=== PATIENT | male | born 1945 | race Caucasian/White ===

== ENCOUNTER → 2018-06-26 10:33 | Emergency (ER) | payer MEDICARE ==
[~2018-06-26 10:33] MED LIST: Potassium Chlor TAB* 20 MEQ TAB.ER PO ONE
--- OUTSIDE RECORDS SUMMARY | 2018-06-26 10:52 | XMS REPORT | Continuity of Care Document ---
:1945 External Reference #:[id number] Author Name Blaze Claudio M.D. Address [address] [place] [address] Care Team Providers Name Role Phone Andrey Ashley M.D. Primary Care Physician Unavailable Payers Type Date Identification Numbers Payment Provider Subscriber Policy Number: [id number] Medicare - [facility] Shadi Luowell PayID: [id number] [address] [place] [address] Policy Number: [id number] Formerly [facility] Shadi Luowell PayID: [id number] [address] [place] [address] Advance Directives Description No Information Available Problems Date Description Provider Status Onset: Essential hypertension Active Onset: Pure hypercholesterolemia Active Onset: Seasonal allergic rhinitis Active Onset: Inflammatory bowel disease Active Onset: 11/23/2014 Primary open angle glaucoma Blaze Claudio M.D. Active Onset: 11/23/2014 Nuclear senile cataract Blaze Claudio M.D. Active Onset: 11/23/2014 Mild / Early Stage Glaucoma Blaze Claudio M.D. Active Onset: 05/25/2015 Combined form of senile cataract Blaze Claudio M.D. Active Onset: 05/25/2015 Primary open-angle glaucoma, mild Blaze Claudio M.D. Active stage Onset: 05/29/2016 Bilateral primary open angle glaucoma Blaze Claudio M.D. Active Onset: 07/01/2016 Primary open angle glaucoma of left Blaze Claudio M.D. Active eye Onset: 07/01/2016 Primary open angle glaucoma of right Blaze Claudio M.D. Active eye Onset: 08/01/2016 Bilateral primary open angle glaucoma Blaze Claudio M.D. Active Onset: 06/03/2018 Other benign neoplasm of skin of left Blaze Claudio M.D. Active upper eyelid, including canthus Family History Date Family Member(s) Problem(s) Comments Father No Current Problems Mother Cataract Mother Hypertension Mother Diabetes Social History Type Date Description Comments Sex Unknown Marital Status Legal Status: Occupation [employer] RETIRED ETOH Use Occasionally consumes alcohol Recreational Drug Use Never Used Drugs Tobacco Use Start: Unknown End: Patient is a former smoker Unknown Smoking Status Reviewed: 06/03/18 Patient is a former smoker Allergies, Adverse Reactions, Alerts Description No Known Drug Allergies Medications Medication Date Status Form Strength Qnty SIG Indications Ordering Provider Erythromycin 06/03 Active Ointment 5mg/GM 1Tube apply to Blaze Lopez surgical [place], site M.D. three times a day Timolol Maleate 06/06 Active GFS 0.5% 5unit Instill 1 Blaze Lopez Ophthalmic Gel s Drop Into [place]o, Forming Each Eye M.D. Once Daily Atenolol 0000 Active Tablets 25mg Gabi, /0000 Andrey Chung Lisinopril 0000 Active Tablets 30mg Gabi, /0000 Andrey Chung Simvastatin 00 Active Tablets 40mg Gabi, /0000 Andrey Chung Sulfasalazine 00 Active Tablets 500mg Zac, /0000 [place] Chung Aspirin Adult Low [address] 81mg Unknown Dose /0000 Multi Vitamin 00 Active Tablets Unknown Daily /0000 Artificial Tears Active Solution 0.1-0.3% as needed Unknown /0000 Pred Forte 05/29 Hx Suspension 1% 5ml One drop H40.1131 Blaze Lopez three [place]leo, - times a M.D. 07/04 day for three days OD, then three times a day for three days OS. Only after procedure . Timolol Maleate 11/22 Hx Solution 0.5% 1 drop Blaze Lopez s both eyes [place], - every day M.D. 06/06 Hydrochlorothiazid Hx Tablets 25mg Gabi, e /0000 Andrey Chung - 11/25 Immunizations Description No Information Available Vital Signs Date Vital Result Comment 07/01/2016 1:06pm BP Systolic 155 mmHg BP Diastolic 83 mmHg Heart Rate 66 /min Respiratory Rate 15 /min 06/10/2016 1:19pm BP Systolic 156 mmHg BP Diastolic 68 mmHg Heart Rate 72 /min Respiratory Rate 14 /min Results Description No Information Available Procedures Date Code Description Status 12/01/2017 82095 Scanning Computerized Ophthalmic Diagnostic Imag Posterior Completed Seg On 12/01/2017 77907 Visual Field Exam Extended Completed 12/01/2017 80772 Est Patient Comprehensive Exam Completed 06/02/2017 69279 Est Patient Intermediate Exam Completed 12/01/2016 35555 Scanning Computerized Ophthalmic Diagnostic Imag Posterior Completed Seg On 12/01/2016 27298 Visual Field Exam Extended Completed 12/01/2016 51981 Est Patient Comprehensive Exam Completed 07/01/2016 93408 Trabeculoplasty By Laser Surgery Completed 06/10/2016 65049 Trabeculoplasty By Laser Surgery Completed 05/29/2016 84510 Est Patient Intermediate Exam Completed 11/27/2015 95581 Est Patient Comprehensive Exam Completed 11/27/2015 48304 Visual Field Exam Extended Completed 11/27/2015 60909 Scanning Computerized Ophthalmic Diagnostic Imag Posterior Completed Seg On 05/25/2015 34867 Est Patient Intermediate Exam Completed 11/23/2014 75813 Scanning Computerized Ophthalmic Diagnostic Imag Posterior Completed Seg On 11/23/2014 30552 Visual Field Exam Extended Completed 11/23/2014 39927 Est Patient Comprehensive Exam Completed 05/23/2014 82619 Gonioscopy Completed 05/23/2014 17564 Est Patient Intermediate Exam Completed 11/22/2013 03836 Fundus Photography With Interpretation And Report Completed 11/22/2013 50176 Visual Field Exam Extended Completed 11/22/2013 67995 Est Patient Comprehensive Exam Completed 05/24/2013 29187 Scanning Computerized Ophthalmic Diagnostic Imag Posterior Completed Seg On 05/24/2013 59587 Est Patient Intermediate Exam Completed 11/16/2012 51058 Est Patient Comprehensive Exam Completed 11/16/2012 95095 Visual Field Exam Extended Completed 05/17/2012 63205 Scanning Computerized Ophthalmic Diagnostic Imag Posterior Completed Seg On 05/17/2012 95959 Est Patient Intermediate Exam Completed 12/04/2011 63343 Trabeculoplasty By Laser Surgery Completed 11/27/2011 88538 Trabeculoplasty By Laser Surgery Completed 10/23/2011 61024 Visual Field Exam Extended Completed 10/23/2011 05569 Est Patient Intermediate Exam Completed 04/24/2011 11539 Scanning Computerized Ophthalmic Diagnostic Imag Posterior Completed Seg On 04/24/2011 31216 Est Patient Intermediate Exam Completed 01/21/2011 51412 Fundus Photography With Interpretation And Report Completed 12/12/2010 26596 Est Patient Intermediate Exam Completed 12/12/2010 59050 Visual Field Exam Extended Completed 06/13/2010 18274 Scanning Laser W/Interp And Report Completed 06/13/2010 71879 Est Patient Comprehensive Exam Completed 11/05/2009 33770 Visual Field Exam Extended Completed 11/05/2009 22854 Est Patient Intermediate Exam Completed 06/04/2009 73166 Scanning Laser W/Interp And Report Completed 06/04/2009 72183 Est Patient Intermediate Exam Completed 01/31/2009 98852 Visual Field Exam Extended Completed 12/28/2008 70189 Fundus Photography With Interpretation And Report Completed 12/28/2008 86871 Determination Of Refractive State Completed 12/28/2008 92365 New Patient Comprehensive Exam Completed 12/28/2008 75392 Pachymetry Completed Encounters Type Date Location Provider Dx Diagnosis Office Visit 08/01/2016 Blaze Mir, H40.1131 Primary 9:30a loi NOVOA M.D. open-angle glaucoma, bilateral, mild stage Office Visit 01/15/2012 Blaze Mir, 365.11 Primary Open 10:30a loi NOVOA M.D. Angle Glaucoma 365.72 Moderate Glaucoma Office Visit 01/21/2011 1:15p Blaze Lopez 365.11 Primary Open Angle MD González, loi Claudio M.D. Glaucoma Office Visit 01/31/2009 9:45a Blaze Lopez 365.04 Ocular Hypertension MD González, loi Claudio M.D. Plan of Treatment 06/03/2018 - Blaze Claudio M.D.H40.1131 Primary open-angle glaucoma, bilateral, mild stageComments:Smoking can increase the risk of developing or worsening any eye related disease, as well as affect your overall health. If you are a smoker, we strongly recommend that you quit.If you are not a smoker, we strongly recommend that you do not start. Your glaucoma is stable at this time.Your eye pressure is within an acceptable range, and your testing does not show any further deterioration at this time. Please continue your treatment.Follow up:6 Month Follow Up DFE/IOP OCT ON Visual Field 30-2 You can expect to have your eyes dilated at yournext visit. If Dr. Claudio orders any additional testing, it may require extra time. We recommend thatyou bring sunglasses, as dilation drops often make you light sensitive until they wear off. We always recommend you bring someone to drive you home if you are uncomfortable driving with your eyes dilated. If you have any questions before your next visit, feel free to call our office at .B75.13 Age- related nuclear cataract, bilateralComments:You have been diagnosed with cataracts. If you are happy with your vision as it is now, then we willsee you at your next scheduled appointment. If you feel like your vision is getting worse before your scheduled appointment, please call Rose or Gwen at .X23.121 Other benign neoplasm of skin of left upper eyelid, including canthus
--- NOTE | 2018-06-26 13:01 | ED ---
GI/ HPI - HPI Summary HPI Summary: Patient is a 72 y/o M presenting to ED with complaints of intermittent rectal bleeding over the past few weeks with an increased amount of bleeding this morning. Provider in room at 1245, patient's accompanying. He claims Hx of hemorrhoids. Patient notes blood is darker red. He characterizes bleeding as spotting and reports that bleeding has been intermittent in the past. However, today it has been worse and nonstop. He also reports that he has been experiencing some clear liquid oozing that is occasionally pink from his rectum as well. He states that he has seen his PCP and Dr. Frank for these Sx and that they appeared unconcerned. He states that he had colonoscopy done 07/2017 and that it was negative. However, patient notes that he has a history of polyps w/ removal, and colitis. Patient notes that he typically has rectal bleeding after a bowel movement and sometimes with just certain activity (while doing things around the house). He denies abdominal pain, N/V/D. PMHx of HTN, HLD, benign enlarged prostate. PSHx for right/left hernias. FMHx of cardiac disease in mother. notes that patient's mother had passed due to colon cancer. No allergies to medicine reported. He notes rare alc usage, no substance usage, and that he is retired. On triage, pain is denied, hard stool is noted to aggravate Sx, nothing is reported to alleviate Sx. Home medications and allergies are reviewed. Patient reports that he is on Lisinopril 30 mg, chlorthalidone 650 mg, atenolol 25 mg, simvastatin 40 mg, sulfasalazine 500 mg x4 daily, asa 81 mg, timolol .5% GFS gel, ferrous sulfate 325 mg, tamsulosin .4 mg. Allergies Allergy/AdvReac Type Severity Reaction Status Date / Time No Known Allergies Allergy Verified 06/26/18 10:38 - History of Current Complaint Chief Complaint: EDGIBleed Time Seen by Provider: 06/26/18 12:45 Stated Complaint: RECTAL BLEEDING Hx Obtained From: Patient, Family/Director Institution Onset/Duration: Started Weeks Ago - a few weeks, Worse Since - this morning Timing: Intermittent, Lasting Weeks - a few weeks Current Severity: None - pain denied Pain Intensity: 0 Associated Signs and Symptoms: Positive: Other: - POSITIVE - RECTAL BLEEDING. Negative: Nausea, Vomiting, Diarrhea, Abdominal Pain Aggravating Factor(s): Bowel Movement - HARD STOOLS Alleviating Factor(s): Nothing - Allergy/Home Medications Allergies/Adverse Reactions: Allergies Allergy/AdvReac Type Severity Reaction Status Date / Time No Known Allergies Allergy Verified 06/26/18 10:38 Home Medications: Home Medications Ascorbic Acid [Vitamin C] 1,000 mg PO DAILY 06/26/18 [History Confirmed 06/26/18 ] Ferrous Sulfate 325 mg PO DAILY 06/26/18 [History Confirmed 06/26/18] Tamsulosin HCl 0.4 mg PO DAILY 06/26/18 [History Confirmed 06/26/18] PMH/Surg Hx/FS Hx/Imm Hx Cardiovascular History: Reports: Hx Hypercholesterolemia, Hx Hypertension GI History: Reports: Other GI Disorders - colon polyps, colitis History: Reports: Other Problems/Disorders - benign enlarged prostate - Surgical History Surgery Procedure, Year, and Place: left and right hernia surgery Infectious Disease History: No Infectious Disease History: Denies: Traveled Outside the [place] in Last 30 Days - Family History Known Family History: Positive: Cardiac Disease, Other - mother, colon CA - Social History Occupation: Retired Alcohol Use: Rare Substance Use Type: Reports: None Smoking Status (MU): Never Smoked Tobacco Review of Systems Negative: Abdominal Pain, Vomiting, Diarrhea, Nausea Genitourinary: Other - POSITIVE - RECTAL BLEEDING, CLEAR FLUID OOZING FROM RECTUM THAT IS OCCASIONALLY PINK All Other Systems Reviewed And Are Negative: Yes Physical Exam - Summary Physical Exam Summary: Appearance: Well-appearing, no pain distress, well-nourished Skin: Warm, color reflects adequate perfusion, dry Head: Normal Head/Face inspection, atraumatic Eyes: Conjunctiva clear ENT: Normal inspection Neck: Supple, no nodes, no JVD Respiratory: Lungs clear, normal breath sounds, no respiratory distress Cardio: RRR, No murmur, pulses normal, brisk capillary refill Abdomen: Soft, nontender Bowel sounds: Present Rectal Exam: 1 external hemorrhoid that is not thrombosed. Dark red blood only, no stool, no masses in rectum. Nurse Shannan chaperoned. Musculoskeletal: Strength Intact/ROM intact, no calf tenderness, no edema. Psychological: Normal Neuro: Alert, muscle tone normal, no focal deficit Triage Information Reviewed: Yes Vital Signs On Initial Exam: Initial Vitals Temp Pulse Resp BP Pulse Ox 97.0 F 64 16 165/86 100 06/26/18 10:35 06/26/18 10:35 06/26/18 10:35 06/26/18 10:35 06/26/18 10:35 Vital Signs Reviewed: Yes Diagnostics - Vital Signs Vital Signs Temp Pulse Resp BP Pulse Ox 06/26/18 12:27 98.1 F 63 18 154/82 99 06/26/18 10:35 97.0 F 64 16 165/86 100 - Laboratory Result Diagrams: 06/26/18 13:03 06/26/18 13:03 Lab Statement: Any lab studies that have been ordered have been reviewed, and results considered in the medical decision making process. Re-Evaluation - Re-Evaluation First Eval Re-Evaluation Time: 14:28 Comment: 1428 rectal exam done. No chest pain, dizziness, SOB reported. Stool occult collected. He notes that he has an appointment with Dr. Frank in two days. Second Eval Re-Evaluation Time: 14:39 Comment: Patient is noted not to be orthostatic by nurse Shannan. Third Eval Re-Evaluation Time: 14:58 Comment: Results of labs and tests were discussed with patient. Discussed discharge with patient, he is agreeable with discharge to home and keeping appointment with Dr. Frank in two days. GIGU Course/Dx - Course Course Of Treatment: Patient is a 72 y/o M presenting to ED with complaints of intermittent rectal bleeding over the past few weeks with an increased amount of bleeding this morning. He claims Hx of hemorrhoids. Patient notes blood is darker red. He characterizes bleeding as spotting and reports that bleeding has been intermittent in the past. However, today it has been worse and nonstop. He also reports that he has been experiencing some clear liquid oozing that is occasionally pink from his rectum as well. He states that he has seen his PCP and Dr. Frank for these Sx and that they appeared unconcerned. He states that he had colonoscopy done 07/2017 and that it was negative. However, patient notes that he has a history of polyps w/ removal, and colitis. Patient notes that he typically has rectal bleeding after a bowel movement and sometimes with just certain activity (while doing things around the house). He denies abdominal pain , N/V/D. PMHx of HTN, HLD, benign enlarged prostate. PSHx for right/left hernias. notes that patient's mother had passed due to colon cancer. Rectal Exam: 1 external hemorrhoid that is not thrombosed. Dark red blood only, no stool, no masses in rectum. Labs showed WBC 6.2, RBC 5.9, Hgb 14.7, Hct 45, MCV 76, MCH 25, RDW 22, sodium 131, chloride 92. Blood type A positive, antibody screen negative. Potassium was 3.1, patient received Klor Con Er Tab 40 meq PO ED ONCE ONE. Patient is noted not to be orthostatic. Stool occult blood positive. Patient's case was discussed with Dr. Mao at 1436, Dr. Mao states that patient sounds stable and that he will give a message to Dr. Frank. Dr. Mao is agreeable with discharge to home and follow up with Dr. Frank in two days. Results of labs and tests were discussed with patient. Discussed discharge with patient, he is agreeable with discharge to home and keeping appointment with Dr. Frank in two days. Dx of rectal bleeding , hypokalemia. - Diagnoses Provider Diagnoses: Rectal bleeding, Hypokalemia - Physician Notifications Discussed Care Of Patient With: Delroy Mao Time Discussed With Above Provider: 14:36 Instructed by Provider To: Other - Patient's case was discussed with Dr. Mao at 1436, Dr. Mao states that patient sounds stable and that he will give a message to Dr. Frank. Dr. Mao is agreeable with discharge to home and follow up with Dr. Frank in two days. Discharge - Sign-Out/Discharge Documenting (check all that apply): Patient Departure - discharge - Discharge Plan Condition: Stable Disposition: HOME Patient Education Materials: Rectal Bleeding (ED) Referrals: Andrey Ashley MD [Primary Care Provider] - 2 Days [place] Frank MD [Medical Doctor] - 2 Days (Keep your appointment on 06/28/18. ) Additional Instructions: Dr. Marx discussed your care with Dr. Mao, who is director of public relations for Dr. Frank. Dr. Mao agreed with discharge, and will give Dr. Frank the message that you were in the ER. Your hemoglobin/ hematocrit were 14.7/45 and your platelets and your bleeding times (INR) were normal. Your blood pressure was 165/86 and your pulse was 68, and you were not orthostatic. Based on these tests we do not have evidence of any serious amount of bleeding at this time. Return to the ER if you have new or worsening symptoms. - Attestation Statements Document Initiated by Scribe: Yes Documenting Scribe: CINDY DORANTES Provider For Whom Scribe is Documenting (Include Credential): TRACE MARX MD Scribe Attestation: CINDY Fraga , scribed for TRACE MARX MD on 06/26/18 at 1724.
[2018-06-26 13:14] LABS: ABS Basophils 0.1 10^3/ul (0-0.2); ABS Eosinophils 0.3 10^3/ul (0-0.6); ABS Lymphocytes 1.5 10^3/ul (1.0-4.8); ABS Monocytes 0.7 10^3/ul (0-0.8); ABS Neutrophils 3.5 10^3/ul (1.5-7.7); ABS Nucleated RBC 0 10^3/ul; Eosinophil % 5.6 %; Hematocrit 45 % (42-52); Hemoglobin 14.7 g/dl (14.0-18.0); Lymphocyte % 24.8 %; Mean Corpuscular HGB Conc 33 g/dl (31-36); Mean Corpuscular Hemoglobin 25 pg (27-31); Mean Corpuscular Volume 76 fL (80-94); Mean Platelet Volume 8.2 fL (7.4-10.4); Nucleated Red Blood Cells % 0.1; Platelet Count 221 10^3/ul (150-450); Red Cell Distribution Width 22 % (10.5-15); White Blood Count 6.2 10^3/ul (3.5-10.8)
[2018-06-26 13:22] LABS: Activated Partial Thrombo Time 29.8 seconds (26.0-36.3); INR 0.91 (0.77-1.02)
[2018-06-26 13:30] LABS: Albumin 4.2 g/dL (3.2-5.2); Albumin/Globulin Ratio 1.1 (1-3); BUN/Creatinine Ratio 15.4 (8-20); Calcium 9.6 mg/dL (8.6-10.3); EGFR Non-African American 97.3 (>60); Globulin 3.8 g/dL (2-4); Potassium 3.1 mmol/L (3.5-5.0); Total Bilirubin 0.6 mg/dL (0.2-1.0)
[2018-06-26 15:13] VITALS: BP 157/94
== END | disposition home or self-care (01) ==
LOC: ED 10:33
DX: K62.5 Hemorrhage of anus and rectum (principal); E87.6 Hypokalemia; I10 Essential (primary) hypertension; E78.5 Hyperlipidemia, unspecified; E78.00 Pure hypercholesterolemia, unspecified
CPT/HCPCS: 36415; 80053; 82272; 85025; 85610; 85730; 86850; 86900; 86901; 99283; A9270-GY

== ENCOUNTER 2023-08-11 09:53 | Observation (INO) ==
[~2023-08-11 09:53] MED LIST changes: +HYDROmorphone 1 MG/1 ML SYRINGE IV PRN; +Naloxone 0.4 mg VIAL 0.4 mg/ml 1 ml VIAL IV PRN; +Ondansetron 4 mg VIAL 2 MG/ML 2 ml VIAL IV PRN; -Potassium Chlor TAB* 20 MEQ TAB.ER PO ONE; +fentaNYL 100 mcg/2 ml 50 MCG/ML VIAL IV PRN
[2023-08-11] MEDS ORDERED: Tranexamic Acid 1 GM/100ML BAG 2,000 MG/200 ML BAG IV ONE (10:15)
[2023-08-11] MEDS ORDERED: ceFAZolin 2 GM PREMIX 2 GM/50 ML BAG ONE (10:15)
[2023-08-11] MEDS ORDERED: Buffered Lidocaine 1% SYRIN 1 ml ONE (10:16)
[2023-08-11 10:25] LABS: Rapid COVID-19 Molecular Undetected (Undetected)
[2023-08-11] MEDS: Lactated Ringers 1000 ml BAG 1,000 ML IV SCH ×2 (10:42→18:30)
[2023-08-11] MEDS: Buffered Lidocaine 1% SYRIN 1 ml INTRADERM ONE (10:42)
[2023-08-11] MEDS ORDERED: Midazolam 2 mg/2 ml VIAL 1 mg/ml 2 ml VIAL (2 mg) ONE ×2 (11:20→12:24)
[2023-08-11] MEDS ORDERED: Lidocaine 2% PF 5 ML VIAL ONE (11:20)
[2023-08-11] MEDS ORDERED: Phenylephrine 40 mcg/mL 10mL (400mcg) SYRINGE ONE (12:01)
[2023-08-11] MEDS ORDERED: ROPIVACAINE 5 MG/ML 30 ML BTL (0.5%) ONE ×2 (12:24→13:04)
[2023-08-11] MEDS ORDERED: Dexamethasone IV 4 MG/ML VIAL 1 ml VIAL ONE ×2 (12:24→14:03)
[2023-08-11] MEDS ORDERED: Rocuronium 50 mg VIAL 10 mg/ml 5 ml VIAL (50 mg) ONE (13:34)
[2023-08-11] MEDS ORDERED: Morphine 2 MG/ML SYRINGE IV PRN (13:49)
[2023-08-11] MEDS ORDERED: Lactulose 30 ml UDC PO PRN (13:49)
[2023-08-11] MEDS ORDERED: Ondansetron ODT 4 mg TAB 4 MG TAB PO PRN (13:49)
[2023-08-11] MEDS ORDERED: Magnesium Hydroxide LIQ 30 ML UDC PO PRN (13:49)
[2023-08-11] MEDS ORDERED: Ondansetron 4 mg VIAL 2 MG/ML 2 ml VIAL IV PRN (13:49)
[2023-08-11] MEDS ORDERED: Glycopyrrolate IV 0.2 MG/ML 1 ML VIAL ONE (13:53)
[2023-08-11] MEDS ORDERED: fentaNYL 100 mcg/2 ml 50 MCG/ML VIAL ONE (14:00)
[2023-08-11] MEDS ORDERED: Ondansetron 4 mg VIAL 2 MG/ML 2 ml VIAL ONE (14:03)
[2023-08-11] MEDS ORDERED: Fluticasone NASAL SPRAY 50MCG 16 gm SPRAY BTL BOTH NARES PRN (17:59)
[2023-08-11] MEDS: Magnesium Hydroxide LIQ 30 ML UDC PO SCH (21:15)
[2023-08-11] MEDS: ceFAZolin 1 GM ADVAN 1 GM in NS 0.9% 50 ML 50 ML IVPB SCH (22:28)
[2023-08-12 05:54] LABS: Hematocrit 35.8 % (38-53); Mean Platelet Volume 9.8 fL (7.5-11.2); Platelet Count 171 10^3/uL (150-450)
[2023-08-12 06:23] LABS: Calcium 8.7 mg/dL (8.6-10.3); Creatinine, Serum 0.66 mg/dL (0.67-1.17); Potassium 3.3 mmol/L (3.5-5.0); eGFR CKD-EPI 95.4 (>60)
[2023-08-12] MEDS: Potassium Chlor 20 meq TAB.ER PO SCH (07:48)
[2023-08-12] MEDS: Vitamin THERAPEUTIC TAB PO SCH (07:48)
[2023-08-12] MEDS: Calcium Polycarbophil 625mg TB PO SCH (07:50)
[2023-08-12] MEDS: Potassium Chlor 20 meq TAB.ER PO ONE (09:18)
[2023-08-12 09:52] VITALS: BP 124/59
[2023-08-12] MEDS ORDERED: TIMOLOL XE 0.5% BOTH EYES SCH (17:00)
== END 2023-08-12 15:00 | disposition home or self-care (01) ==
LOC: AA 09:53 → INTOOBSV 09:53 → SSU 17:58
PROVIDERS: ADMIT Orthopaedic Surgery Adult Reconstructive Orthopaedic Surgery; ATTEND Orthopaedic Surgery Adult Reconstructive Orthopaedic Surgery

== ENCOUNTER 2024-04-26 10:12 | Observation (INO) ==
[~2024-04-26 10:12] MED LIST changes: -HYDROmorphone 1 MG/1 ML SYRINGE IV PRN; +Metoclopramide 5 MG/ML VIAL (10 mg) IV PRN; +NS 0.45% 1000 ml BAG 1,000 ML IV SCH
[2024-04-26] MEDS ORDERED: Ondansetron 4 mg VIAL 2 MG/ML 2 ml VIAL ONE (10:40)
[2024-04-26] MEDS ORDERED: Midazolam 2 mg/2 ml VIAL 1 mg/ml 2 ml VIAL (2 mg) ONE ×2 (10:40→12:13)
[2024-04-26] MEDS ORDERED: Dexamethasone IV 4 MG/ML VIAL 1 ml VIAL ONE (10:40)
[2024-04-26] MEDS ORDERED: fentaNYL 100 mcg/2 ml 50 MCG/ML VIAL ONE ×2 (10:40→12:13)
[2024-04-26] MEDS ORDERED: Lidocaine 2% PF 5 ML VIAL ONE ×2 (10:40→11:32)
[2024-04-26] MEDS ORDERED: ceFAZolin 2 GM PREMIX 2 GM/50 ML BAG ONE (10:53)
[2024-04-26 10:56] LABS: Rapid COVID-19 Molecular Undetected (Undetected)
[2024-04-26] MEDS: Buffered Lidocaine 1% SYRIN 1 ml INTRADERM ONE (11:01)
[2024-04-26] MEDS: Scopolamine 1 mg/72hr PATCH TRANSDERM ONE (11:01)
[2024-04-26] MEDS: Lactated Ringers 1000 ml BAG 1,000 ML IV SCH ×2 (11:02→18:08)
[2024-04-26] MEDS ORDERED: Bupivacaine-MPF SPINAL 7.5 MG/ML - 2ML AMP ONE (11:32)
[2024-04-26] MEDS ORDERED: ROPIVACAINE 5 MG/ML 30 ML BTL (0.5%) ONE (13:31)
[2024-04-26] MEDS ORDERED: Ondansetron 4 mg VIAL 2 MG/ML 2 ml VIAL IV PRN (14:12)
[2024-04-26] MEDS ORDERED: Morphine 2 MG/ML SYRINGE IV PRN (14:12)
[2024-04-26] MEDS ORDERED: Magnesium Hydroxide LIQ 30 ML UDC PO PRN (14:12)
[2024-04-26] MEDS ORDERED: Ondansetron ODT 4 mg TAB 4 MG TAB PO PRN (14:12)
[2024-04-26] MEDS ORDERED: Lactulose 30 ml UDC PO PRN (14:12)
[2024-04-26] MEDS ORDERED: Propofol 10 MG/ML 20 ML BTL ONE ×2 (14:28→14:56)
[2024-04-26] MEDS: Acetaminophen IV 1 GM/100ML 1,000 MG/100 ML BAG IV ONE (18:24)
[2024-04-26] MEDS: Potassium Chlor 20 meq TAB.ER PO SCH (21:55)
[2024-04-26] MEDS: Magnesium Hydroxide LIQ 30 ML UDC PO SCH (21:57)
[2024-04-26] MEDS: ceFAZolin 2 GM PREMIX 2 GM/50 ML BAG IV SCH (21:57)
[2024-04-26] MEDS: NF: Multivitamins/Mins AREDS2 (NF) CAP PO SCH (21:57)
[2024-04-27] MEDS: Calcium Carb (TUMS) 500 mg CHEW TAB PO PRN (05:08)
[2024-04-27 06:21] LABS: Hematocrit 38.1 % (38-53); Hemoglobin 12.6 g/dL (13.2-16.3); Mean Platelet Volume 9.3 fL (7.5-11.2); Platelet Count 209 10^3/uL (150-450)
[2024-04-27 07:04] LABS: Creatinine, Serum 0.68 mg/dL (0.67-1.17); Potassium 3.5 mmol/L (3.5-5.0)
[2024-04-27] MEDS: Calcium Polycarbophil 625mg TB PO SCH (08:34)
[2024-04-27] MEDS: Vitamin THERAPEUTIC TAB PO SCH (08:36)
[2024-04-27 13:39] VITALS: BP 133/68
[2024-04-27] MEDS ORDERED: Timolol 0.5% OPTH.SOL BTL BOTH EYES SCH (17:00)
== END 2024-04-27 14:06 | disposition home or self-care (01) ==
LOC: OR 10:12 → SSU 10:12
PROVIDERS: ADMIT Orthopaedic Surgery Adult Reconstructive Orthopaedic Surgery; ATTEND Orthopaedic Surgery Adult Reconstructive Orthopaedic Surgery